=== PATIENT | male | born 1985 | race Caucasian/White ===

== ENCOUNTER 2016-07-27 09:15 | Emergency (ER) | payer SELFPAY ==
[~2016-07-27] VITALS: Ht 188 cm; Wt 81.8 kg
[2016-07-27 09:19] VITALS: TEMP 97.8
[2016-07-27 10:24] LABS: BASO # 0.1 (0.0-0.2); BASO % 0.5 % (0.0-2.0); EOS # 0.2 (0.0-0.7); EOS % 2.2 % (0-4.0); GRAN # 6.9 (1.4-6.5); GRAN % 65.3 % (42.2-75.2); HEMATOCRIT 47.2 % (42.0-52.0); LYMPH # 2.5 (1.2-3.4); LYMPH % 23.3 % (20.0-51.0); MEAN CELL VOLUME 91 fl (80.0-100.0); MEAN CORPUSCULAR HEMOGLOBIN 31 pg (27.0-31.0); MEAN CORPUSCULAR HGB CONC 34 g/dl (33.0-37.0); MONO # 0.9 (0.1-0.6); MONO % 8.1 % (1.7-9.3); PLATELET COUNT 279 K/mm3 (130-400); WHITE BLOOD COUNT 10.5 K/mm3 (4.8-10.8)
[2016-07-27 10:43] LABS: ALBUMIN 4.2 gm/dL (3.5-5.0); BILIRUBIN,TOTAL 0.6 mg/dL (0.0-1.0); CALCIUM 9.2 mg/dL (8.4-10.2); CREATININE, serum 0.8 mg/dL (0.66-1.25); INFLUENZA B NEGATIVE; POTASSIUM 3.8 mmol/L (3.4-5.0); TOTAL PROTEIN 7.4 gm/dL (6.4-8.2)
[2016-07-27] MEDS ORDERED: PEN-VEE K500 MG PO (11:26)
[2016-07-27 11:37] VITALS: BP 129/81; PULSE 60
== END 2016-07-27 11:38 | disposition home or self-care (01) ==
LOC: COL.ER 09:15
PROVIDERS: Nurse Practitioner
DX: B34.9 Viral infection, unspecified (principal); R09.89 Other specified symptoms and signs involving the circulatory and respiratory systems; K08.89 Other specified disorders of teeth and supporting structures; F17.210 Nicotine dependence, cigarettes, uncomplicated; R59.0 Localized enlarged lymph nodes
CPT/HCPCS: J2405; J7030

== ENCOUNTER 2018-06-19 12:51 | Emergency (ER) | payer SELFPAY ==
[~2018-06-19] VITALS: Ht 188 cm; Wt 93.2 kg
[~2018-06-19 12:51] MED LIST: PEN-VEE K500 MG PO
[2018-06-19 12:54] VITALS: BP 138/96; TEMP 99.4
[2018-06-19] MEDS ORDERED: AMOXICILLIN 8751 TAB PO (14:42)
[2018-06-19 15:19] VITALS: PULSE 101
== END 2018-06-19 15:20 | disposition home or self-care (01) ==
LOC: COL.ER 12:51
DX: K02.9 Dental caries, unspecified (principal); F17.210 Nicotine dependence, cigarettes, uncomplicated
CPT/HCPCS: J1885